=== PATIENT | male | born 1940 | race Caucasian/White ===

== ENCOUNTER 2019-03-07 08:23 | Day surgery (SDC) | payer MEDICARE, BC ==
[~2019-03-07] VITALS: Ht 182.9 cm; Wt 81.6 kg
--- NOTE | ~2019-03-07 | OP ---
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 OPERATIONS PERFORMED: Ligation of AV fistula and direct suture repair of radial artery with excision of pseudoaneurysm. SURGEON: Angi Cedeno MD ANESTHESIA: General by LMA per POSTDOCTORAL SCIENTIST. PREOPERATIVE NOTE: Mr. Hopkins is an 79-year-old white male patient with severe steal syndrome in his left hand with a patent left wrist radiocephalic fistula with a pseudoaneurysm in the anastomosis. He is brought to the operating room at this time to ligate the fistula and repair the artery. Under general anesthesia in supine position, the patient was prepped and draped in sterile manner and a longitudinal incision was made through the old incision, extending proximal and distal. Dissection was done sharply, the overlying skin and subcutaneous tissue from the underlying fistula. The radial artery was dissected and controlled with Silastic loops proximal and distal to the anastomosis. The cephalic vein proximally also was controlled with 2-0 silk ligature. The artery was occluded and the cephalic vein then transected. The pseudoaneurysm was excised, leaving enough tissue for running suture repair, which was then done with 6-0 Prolene. With release of the occluding clamps and loops, there was no bleeding and there was return of excellent pulsatile flow in the radial artery proximal and distal to the anastomosis with dramatic improvement in flow into the hand. The wound was infiltrated with 0.25% plain Marcaine and closed with interrupted inverted 3-0 Vicryl and running intracuticular 4-0 Monocryl. The incision was sealed with Dermabond glue and dressed with Maxorb Ag, Tegaderm, and Cavilon skin prep. The patient was awakened and taken to the recovery room. There was no blood loss of consequence, 5 cc perhaps. Sponges, instruments, and needles were accounted for. No drain was used. The excised pseudoaneurysm was sent to pathology. I plan for the patient to go home today and follow up with me in my office next week. 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
[2019-03-07 08:34] LABS: ANION GAP 13.9 mmol/L (8-16); CALCIUM 9.3 mg/dL (8.5-10.1); CARBON DIOXIDE 28.9 mmol/L (21.0-32.0); CREATININE - SERUM 6.2 mg/dL (0.6-1.3); POTASSIUM - SERUM 3.8 mmol/L (3.5-5.1)
[2019-03-07 08:44] LABS: INR 0.93 (0.85-1.17); PROTIME 11.9 SECONDS (11.6-15.0)
[2019-03-07 09:24] LABS: BASOPHILS 0.5 % (0-2); EOSINOPHILS 7.3 % (0-7); HEMATOCRIT 26.9 % (42.0-54.0); IMMATURE GRANULOCYTES 0.3 % (0-5); MCH 35.9 pg (26.0-34.0); MCHC 33.5 g/dL (31.0-37.0); MCV 107.2 fL (80.0-100.0); MEAN PLATELET VOLUME 9.3 fL (7.4-10.4); MONOCYTES 10.8 % (2-11); NEUTROPHILS 59.1 % (40-80); PLATELET COUNT 117 10x3/uL (130-400); RBC 2.51 10x6/uL (4.20-6.10); RDW 13.8 % (11.5-14.5); WBC 6.6 10x3/uL (4.8-10.8)
[2019-03-07] MEDS ORDERED: PEPCID AC20 MG PO (11:12)
[2019-03-07] MEDS ORDERED: ROCALTROL0.25 MCG PO (11:12)
[2019-03-07] MEDS ORDERED: SODIUM BICARBO325 MG PO (11:12)
[2019-03-07] MEDS ORDERED: PRAVACHOL40 MG PO (11:13)
[2019-03-07] MEDS ORDERED: FERRIC CITRATE210 MG PO (11:13)
[2019-03-07] MEDS ORDERED: GABAPENTIN100 MG PO (11:14)
[2019-03-07] MEDS ORDERED: BAYER CHEWABLE81 MG PO (11:14)
[2019-03-07 11:39] VITALS: Ht 182.9 cm; Wt 81.6 kg
== END 2019-03-07 16:30 | disposition home or self-care (01) ==
LOC: D.OPS 08:23
PROVIDERS: Surgery; ATTEND Internal Medicine Nephrology
DX: T82.898A Other specified complication of vascular prosthetic devices, implants and grafts, initial encounter (principal)